=== PATIENT | female | born 1975 | race African-American/Black ===

== ENCOUNTER 2021-07-12 17:58 | Emergency (ER) | payer MEDICARE, MEDICAID ==
[2021-07-12 19:29] LABS: Bilirubin Neg (Negative); Blood, Urine 150 (Negative); Clarity Clear (Clear); Glucose, Urine (Dipstick) Normal (Negative); Ketone, Urine Negative (Negative); Leukocyte Negative (Negative); Nitrite Negative (Negative); Protein, Urine (Dipstick) 15 mg/dl (Neg-Trace); Urobilinogen Normal mg/dL (Less than 2)
[2021-07-12 19:30] LABS: Pregnancy Test - Urine (BHCG) Negative (Negative); Pregu Control Background? CLEAR/WHITE (CLR/WHITE); Pregu Control Bar Appear? YES (CONTROL BAR)
[2021-07-12 19:36] LABS: #Basophils 0.1 10x3/uL (0.0-0.2); #Eosinphils 0.1 10x3/uL (0.0-0.5); #Monocytes 0.6 10x3/uL (0.0-1.1); %Basophils 1.1 % (0.0-2.0); %Eosinophils 1.8 % (0.0-6.0); %Lymphocytes 22.4 % (18.0-47.0); %Monocytes 14.5 % (0.0-10.0); Hemoglobin 7.1 g/dL (12.0-15.5); Mean Corpuscular HGB CONC 28.5 g/dL (32.0-36.0); Mean Corpuscular Hemoglobin 22.3 pg (27.0-33.0); Mean Corpuscular Volume 78.3 fl (81.6-98.3); Mean Platelet Volume 10.1 fl (7.4-10.4); Platelet Count 354 10x3/uL (150-450); RBC Distribution Width 16.6 % (11.5-14.5); Red Blood Cell (RBC) Count 3.18 10x6/uL (3.90-5.03); White Blood Cell (WBC) Count 4.4 10x3/uL (3.5-10.5)
[2021-07-12 19:37] LABS: Amphetamine Not Detected (NotDetected); Bacteria/HPF Rare-Few HPF (None Seen); Barbiturates Screen Not Detected (NotDetected); Benzodiazepine Screen Not Detected (NotDetected); Cocaine Metabolite Screen Not Detected (NotDetected); Methadone Not Detected (NotDetected); Methamphetamine Not Detected (NotDetected); Opiate Screen Not Detected (NotDetected); Oxycodone Screen Not Detected (NotDetected); Phencyclidine (PCP) Not Detected (NotDetected); THC/Cannabinoid Screen Not Detected (NotDetected); Tricyclic Screen Not Detected (NotDetected); WBC/HPF 0-3 HPF (0-3)
[2021-07-12 19:49] LABS: #Neutrophils 2.7 10x3/uL (1.5-8.4); %Neutrophils 60.2 % (40.0-75.0)
[2021-07-12 19:52] LABS: ALT (SGPT) 8 U/L (8-55); AST (SGOT) 12 U/L (5-34); Albumin 4.2 g/dL (3.5-5.0); Alkaline Phosphatase 51 U/L (40-110); Anion Gap 10 mmol/L (10-20); BUN (Urea Nitrogen) 11 mg/dL (7.0-18.7); Bilirubin, Total 0.2 mg/dL (0.2-1.2); CK (CPK) 124 U/L (29-168); Calc. Creatinine Clearance 0 mL/min (70-130); Calcium 9.2 mg/dL (7.8-10.44); Carbon Dioxide 25 mmol/L (22-29); Chloride 107 mmol/L (98-107); Globulin 2.6 g/dL (2.4-3.5); Glucose 97 mg/dL (70-105); Potassium 4.3 mmol/L (3.5-5.1); Protein, Total 6.8 g/dL (6.0-8.3); Sodium 138 mmol/L (136-145)
[2021-07-12 19:53] LABS: Acetaminophen Less than 6.0 mcg/mL (10.0-30.0); Alcohol Less than 10 mg/dL (Less than 10); Salicylate Less than 8.0 mg/dL (15.0-30.0)
[2021-07-12] MEDS ORDERED: Haloperidol Lactate 5 MG/ML VIAL ONE (19:54)
[2021-07-12] MEDS ORDERED: Lorazepam 2 MG/ML VIAL ONE (19:59)
[2021-07-12] MEDS ORDERED: Lorazepam 1 MG TAB ONE (20:02)
[2021-07-12 20:19] LABS: Hypochromia SLIGHT = 6-15 cells (100X) (0-5/hpf); Ovalocytes SLIGHT = 2-5 cells (100X) (0-1/hpf)
[2021-07-12 20:20] LABS: Platelet Morphology Comment Appears Adequate
[2021-07-12 23:27] LABS: SARS-CoV-2 NAA Rapid Test Not Detected (NotDetected)
[2021-07-13] MEDS ORDERED: Lorazepam 2 MG/ML VIAL ONE (04:04)
== END 2021-07-13 10:16 | disposition short-term general hospital (02) ==
LOC: CSHERS 17:58
DX: F29 Unspecified psychosis not due to a substance or known physiological condition (principal); Z20.822 Contact with and (suspected) exposure to COVID-19
CPT/HCPCS: 80306; 80307; 81025; 82550; 96372; 99285; U0002; 80053; 81003; 81015; 84443; 85025; J1630; J2060

== ENCOUNTER 2023-02-03 14:36 | Emergency (ER) | payer MEDICARE, MEDICAID ==
[2023-02-03 15:44] LABS: #Eosinphils 0.1 10x3/uL (0.0-0.5); #Monocytes 0.4 10x3/uL (0.0-1.1); #Neutrophils 4.9 10x3/uL (1.5-8.4); %Basophils 0.7 % (0.0-2.0); %Eosinophils 0.8 % (0.0-6.0); %Lymphocytes 7.5 % (18.0-47.0); %Monocytes 7.1 % (0.0-10.0); %Neutrophils 83.6 % (40.0-75.0); Hemoglobin 9.4 g/dL (12.0-15.5); Mean Corpuscular HGB CONC 29.4 g/dL (32.0-36.0); Mean Corpuscular Hemoglobin 24.3 pg (27.0-33.0); Mean Corpuscular Volume 82.7 fl (81.6-98.3); Mean Platelet Volume 11.4 fl (7.4-10.4); Platelet Count 285 10x3/uL (150-450); RBC Distribution Width 17.6 % (11.5-14.5); Red Blood Cell (RBC) Count 3.87 10x6/uL (3.90-5.03); White Blood Cell (WBC) Count 5.9 10x3/uL (3.5-10.5)
[2023-02-03 16:11] LABS: ALT (SGPT) 17 U/L (8-55); AST (SGOT) 17 U/L (5-34); Acetaminophen Less than 10 mcg/mL (10.0-30.0); Alcohol Less than 10.0 mg/dL (Less than 10); Alkaline Phosphatase 50 U/L (40-110); Anion Gap 16 mmol/L (10-20); BUN (Urea Nitrogen) 25 mg/dL (7.0-18.7); Bilirubin, Total 0.6 mg/dL (0.2-1.2); CK (CPK) 92 U/L (29-168); Calc. Creatinine Clearance 0 mL/min (70-130); Calcium 9.9 mg/dL (7.8-10.44); Carbon Dioxide 28 mmol/L (22-29); Chloride 109 mmol/L (98-107); Estimated GFR 53; Globulin 2.4 g/dL (2.4-3.5); Glucose 84 mg/dL (70-105); Potassium 3.7 mmol/L (3.5-5.1); Protein, Total 6.4 g/dL (6.0-8.3); Salicylate Less than 8.0 mg/dL (15.0-30.0); Sodium 149 mmol/L (136-145)
[2023-02-03 16:29] LABS: Bilirubin Neg (Negative); Blood, Urine 150 (Negative); Clarity Slightly Cloudy (Clear); Glucose, Urine (Dipstick) 50 mg/dL (Negative); Ketone, Urine 15 mg/dL (Negative); Leukocyte 25 (Negative); Nitrite Negative (Negative); Protein, Urine (Dipstick) 100 mg/dl (Neg-Trace)
[2023-02-03 16:33] LABS: Pregnancy Test - Urine (BHCG) Negative (Negative); Pregu Control Background? CLEAR/WHITE (CLR/WHITE); Pregu Control Bar Appear? YES (CONTROL BAR)
[2023-02-03 16:37] LABS: Amphetamine Not Detected (NotDetected); Barbiturates Screen Not Detected (NotDetected); Benzodiazepine Screen Not Detected (NotDetected); Cocaine Metabolite Screen Not Detected (NotDetected); Methadone Not Detected (NotDetected); Methamphetamine Not Detected (NotDetected); Opiate Screen Not Detected (NotDetected); Oxycodone Screen Not Detected (NotDetected); Phencyclidine (PCP) Not Detected (NotDetected); THC/Cannabinoid Screen Not Detected (NotDetected); Tricyclic Screen Not Detected (NotDetected)
[2023-02-03 16:42] LABS: Anisocytosis SLIGHT = 6-15 cells (100X) (0-5/hpf); Hypochromia MODERATE=16-30 cells (100X) (0-5/hpf); Microcytosis SLIGHT = 6-15 cells (100X) (0-5/hpf); Ovalocytes MODERATE= 6-15 cells (100X) (0-1/hpf)
[2023-02-03 16:43] LABS: Poikilocytosis SLIGHT = 6-15 cells (100X) (0-5/hpf)
[2023-02-03 16:44] LABS: Polychromasia SLIGHT = 2-3 cells (100X) (0-2/hpf)
[2023-02-03 16:45] LABS: Burr Cells SLIGHT = 2-5 cells (100X) (0-1/hpf); Large Platelets MODERATE (None Seen); Platelet Adequacy Comment Appears Adequate
[2023-02-03 17:37] LABS: Bacteria/HPF 1+ HPF (None Seen); CAUTI Indications for Culture Pelvic or flank pain; Mucous/LPF 1+ LPF (<2+); RBC/HPF 0-3 HPF (0-3); Renal Epithelial 0-3 HPF (None Seen); Squamous Epithelial 0-3 HPF (0-3)
[2023-02-03 17:38] LABS: Urine Culture Reflex No No
[2023-02-03] MEDS ORDERED: Sterile Water 10 ML ONE (19:48)
[2023-02-03] MEDS ORDERED: Ziprasidone 20 MG VIAL ONE (19:48)
[2023-02-04] MEDS ORDERED: Haloperidol Lactate 5 MG/ML VIAL ONE (01:36)
[2023-02-04] MEDS ORDERED: Sterile Water 10 ML ONE (01:38)
[2023-02-04] MEDS ORDERED: Ziprasidone 20 MG VIAL ONE ×2 (01:38→08:03)
[2023-02-04] MEDS ORDERED: Ziprasidone 20 MG CAP ONE ×2 (07:25→18:43)
[2023-02-04] MEDS ORDERED: Acetaminophen 325 MG TAB ONE (08:11)
[2023-02-04] MEDS ORDERED: diphenhydrAMINE 50 MG/ML VIAL ONE (09:59)
[2023-02-04] MEDS ORDERED: Lorazepam 2 MG/ML VIAL ONE (09:59)
[2023-02-05] MEDS ORDERED: Ziprasidone 20 MG CAP ONE ×2 (02:51→12:45)
[2023-02-05] MEDS ORDERED: Acetaminophen 500 MG TAB ONE (07:35)
== END 2023-02-05 14:02 ==
LOC: CSHERS 14:36
DX: F29 Unspecified psychosis not due to a substance or known physiological condition (principal)
CPT/HCPCS: 36415; 80053; 80306; 80307; 81001; 81025; 82550; 84443; 85025; 96372; 96374; 96375; J1200; J1630; J2060; J3486

== ENCOUNTER 2023-05-16 14:13 | Emergency (ER) | payer MEDICARE, MEDICAID ==
[2023-05-16] MEDS ORDERED: Lorazepam 1 MG TAB ONE (15:22)
[2023-05-16 15:31] LABS: BHCG - Serum Negative (NEGATIVE); Pregs Control Background? CLEAR/WHITE (CLR/WHITE); Pregs Control Bar Appear? YES (CONTROL BAR)
[2023-05-16 15:33] LABS: Acetaminophen Less than 10 mcg/mL (10.0-30.0); Alcohol Less than 10.0 mg/dL (Less than 10); Salicylate Less than 8.0 mg/dL (15.0-30.0)
[2023-05-16 15:34] LABS: ALT (SGPT) 23 U/L (8-55); AST (SGOT) 29 U/L (5-34); Alkaline Phosphatase 50 U/L (40-110); Anion Gap 12 mmol/L (10-20); BUN (Urea Nitrogen) 14 mg/dL (7.0-18.7); Bilirubin, Total 0.4 mg/dL (0.2-1.2); CK (CPK) 274 U/L (29-168); Calc. Creatinine Clearance 0 mL/min (70-130); Calcium 9.4 mg/dL (7.8-10.44); Carbon Dioxide 29 mmol/L (22-29); Chloride 105 mmol/L (98-107); Estimated GFR 71; Globulin 2.1 g/dL (2.4-3.5); Glucose 119 mg/dL (70-105); Potassium 4.1 mmol/L (3.5-5.1); Protein, Total 6.1 g/dL (6.0-8.3); Sodium 142 mmol/L (136-145)
[2023-05-16 15:43] LABS: #Eosinphils 0.1 10x3/uL (0.0-0.5); #Monocytes 0.4 10x3/uL (0.0-1.1); #Neutrophils 2.6 10x3/uL (1.5-8.4); %Basophils 0.6 % (0.0-2.0); %Eosinophils 1.4 % (0.0-6.0); %Neutrophils 73.7 % (40.0-75.0); Hematocrit 27.4 % (34.9-44.5); Hemoglobin 7.9 g/dL (12.0-15.5); Mean Corpuscular HGB CONC 28.8 g/dL (32.0-36.0); Mean Corpuscular Hemoglobin 21.2 pg (27.0-33.0); Mean Corpuscular Volume 73.7 fl (81.6-98.3); Mean Platelet Volume 10.6 fl (7.4-10.4); Platelet Count 334 10x3/uL (150-450); RBC Distribution Width 21.1 % (11.5-14.5); Red Blood Cell (RBC) Count 3.72 10x6/uL (3.90-5.03); White Blood Cell (WBC) Count 3.5 10x3/uL (3.5-10.5)
[2023-05-16 16:35] LABS: Amphetamine Not Detected (NotDetected); Barbiturates Screen Not Detected (NotDetected); Benzodiazepine Screen Not Detected (NotDetected); Cocaine Metabolite Screen Not Detected (NotDetected); Methadone Not Detected (NotDetected); Methamphetamine Not Detected (NotDetected); Opiate Screen Not Detected (NotDetected); Oxycodone Screen Not Detected (NotDetected); Phencyclidine (PCP) Not Detected (NotDetected); THC/Cannabinoid Screen Not Detected (NotDetected); Tricyclic Screen Not Detected (NotDetected)
== END 2023-05-16 19:17 | disposition home or self-care (01) ==
LOC: CSHERS 14:13
DX: F20.9 Schizophrenia, unspecified (principal)
CPT/HCPCS: 71045; 74019; 80053; 80306; 80307; 82550; 84443; 84703; 85025; 93005